=== PATIENT | female | born 1975 | race Caucasian/White ===

== ENCOUNTER 2019-04-05 16:10 | Outpatient (CLI) | payer OTHER | END 2019-04-05 16:11 | disposition home or self-care (01) | LOC: DTY/OP 16:10 | PROVIDERS: ATTEND Surgery | DX: E66.01 Morbid (severe) obesity due to excess calories (principal) | CPT/HCPCS: 97802 ==

== ENCOUNTER 2019-05-02 13:07 | Outpatient (CLI) | payer OTHER | END 2019-05-02 13:08 | disposition home or self-care (01) | LOC: DTY/OP 13:07 | PROVIDERS: ATTEND Surgery | DX: E66.01 Morbid (severe) obesity due to excess calories (principal) | CPT/HCPCS: 97802 ==

== ENCOUNTER 2019-06-05 15:51 | Outpatient (CLI) | payer OTHER | END 2019-06-05 15:52 | disposition home or self-care (01) | LOC: DTY/OP 15:51 | PROVIDERS: ATTEND Surgery | DX: E66.01 Morbid (severe) obesity due to excess calories (principal) | CPT/HCPCS: 97802 ==

== ENCOUNTER 2019-07-05 15:50 | Outpatient (CLI) | payer OTHER | END 2019-07-05 15:51 | disposition home or self-care (01) | LOC: DTY/OP 15:50 | PROVIDERS: ATTEND Surgery | DX: E66.01 Morbid (severe) obesity due to excess calories (principal) | CPT/HCPCS: 97802 ==

== ENCOUNTER 2019-08-14 15:39 | Outpatient (CLI) | payer OTHER | END 2019-08-14 15:40 | disposition home or self-care (01) | LOC: DTY/OP 15:39 | PROVIDERS: ATTEND Surgery | DX: E66.01 Morbid (severe) obesity due to excess calories (principal) | CPT/HCPCS: 97802 ==

== ENCOUNTER 2019-09-11 15:55 | Outpatient (CLI) | payer OTHER | END 2019-09-11 15:56 | disposition home or self-care (01) | LOC: DTY/OP 15:55 | PROVIDERS: ATTEND Surgery | DX: E66.01 Morbid (severe) obesity due to excess calories (principal) | CPT/HCPCS: 97802 ==

== ENCOUNTER 2020-02-08 06:40 | Outpatient (CLI) | payer OTHER ==
[2020-02-08 18:03] LABS: Hemoglobin A1c 5.3 % (4.0-6.0)
[2020-02-08 18:07] LABS: ALT (SGPT) 16 U/L (8-55); AST (SGOT) 20 U/L (5-34); Albumin 4.5 g/dL (3.5-5.0); Alkaline Phosphatase 70 U/L (40-110); Anion Gap 13 mmol/L (10-20); BUN (Urea Nitrogen) 26 mg/dL (7.0-18.7); Bilirubin, Total 0.6 mg/dL (0.2-1.2); Calc. Creatinine Clearance 0 mL/min (70-130); Calcium 9.2 mg/dL (7.8-10.44); Carbon Dioxide 25 mmol/L (22-29); Chloride 103 mmol/L (98-107); Estimated GFR-MDRD 72; Glucose 93 mg/dL (70-105); Potassium 4.2 mmol/L (3.5-5.1); Protein, Total 7.5 g/dL (6.0-8.3); Sodium 137 mmol/L (136-145)
[2020-02-09 12:25] LABS: SARS-CoV-2 MS2 Positive; SARS-CoV-2 N Gene Negative; SARS-CoV-2 S Gene Negative; SARS-CoV-2 orf1ab Negative
--- NOTE | 2020-02-11 14:24 | RAD ---
RADIOGRAPH CHEST 2 VIEWS: DATE: 02/11/2020 HISTORY: 44-year-old female for preoperative clearance FINDINGS: There is no airspace density, pulmonary edema, pleural effusion, pneumothorax, or cardiomegaly. IMPRESSION: No acute cardiopulmonary findings.
== END 2020-02-08 06:41 | disposition home or self-care (01) ==
LOC: LABBT 06:40
PROVIDERS: ATTEND Surgery
DX: Z01.818 Encounter for other preprocedural examination (principal); Z11.59 Encounter for screening for other viral diseases; E66.01 Morbid (severe) obesity due to excess calories
CPT/HCPCS: 71046; 80053; 83036; 87635; 93005; 93010; U0003

== ENCOUNTER 2020-02-08 16:00 | Inpatient (IN) | payer OTHER ==
[2020-02-07 10:39] VITALS: BMI 43.7
[2020-02-12] MEDS ORDERED: Heparin 5,000 UNITS/ML VIAL ONE (07:51)
[2020-02-12 08:09] LABS: #Eosinphils 0.3 thou/uL (0.0-0.7); #Lymphocytes 1.4 thou/uL (1.20-3.40); #Monocytes 0.4 thou/uL (0.11-0.59); #Neutrophils 4.7 thou/uL (1.40-6.50); %Basophils 0.6 % (0.0-1.0); %Eosinophils 3.7 % (0.0-10.0); %Lymphocytes 21.2 % (21.0-51.0); %Monocytes 5.8 % (0.0-10.0); %Neutrophils 68.7 % (42.0-75.0); Hemoglobin 11.5 g/dL (12.0-16.0); Mean Corpuscular HGB CONC 32.5 g/dL (32.0-36.0); Mean Corpuscular Hemoglobin 27.4 pg (27.0-31.0); Mean Corpuscular Volume 84.3 fL (78.0-98.0); Mean Platelet Volume 9.1 fL (7.4-10.4); Platelet Count 153 thou/uL (130-400); RBC Distribution Width 13.2 % (11.5-14.5); Red Blood Cell (RBC) Count 4.21 mill/uL (4.20-5.40); White Blood Cell (WBC) Count 6.8 thou/uL (4.8-10.8)
[2020-02-12 08:10] LABS: BHCG - Serum Negative (NEGATIVE); Pregs Control Background? CLEAR/WHITE (CLR/WHITE); Pregs Control Bar Appear? YES (CONTROL BAR)
[2020-02-12] MEDS ORDERED: Lidocaine 1% w/Epinephrine 1:100K 20 ML VIAL ONE (09:13)
[2020-02-12] MEDS ORDERED: Bupivacaine 0.25% HCL 30 ML VIAL ONE (09:13)
[2020-02-12] MEDS ORDERED: Midazolam HCl 2 mg/2 ml Vial ONE (09:22)
[2020-02-12] MEDS ORDERED: Fentanyl 250 MCG/5 ML VIAL ONE (09:22)
[2020-02-12] MEDS ORDERED: Fentanyl 100 MCG/2 ML VIAL ONE ×3 (11:09→12:21)
[2020-02-12] MEDS ORDERED: fentaNYL Citrate/PF 2,000 MCG in Sodium Chloride 0.9% 60 ML IV PRN ×3 (11:35→21:30)
[2020-02-12] MEDS ORDERED: Naloxone HCl 0.4 mg/ml Vial IV PRN (11:35)
[2020-02-12] MEDS ORDERED: Ondansetron PF 4 MG/2 ML Vial IVP PRN ×2 (11:35→15:56)
[2020-02-12] MEDS ORDERED: Promethazine HCl 25 MG/ML VIAL IM PRN ×2 (11:35→15:56)
[2020-02-12] MEDS ORDERED: diphenhydrAMINE 50 MG/ML VIAL IM PRN (11:35)
[2020-02-12] MEDS ORDERED: diphenhydrAMINE 25 MG CAP PO PRN (11:35)
[2020-02-12] MEDS ORDERED: diphenhydrAMINE 50 MG/ML VIAL IVP PRN ×2 (11:35→15:56)
[2020-02-12] MEDS ORDERED: Zolpidem Tartrate 5 MG TAB PO PRN (11:35)
[2020-02-12] MEDS ORDERED: Communication Order-Pharmacy FS SCH (11:45)
--- NOTE | 2020-02-12 11:59 | OP ---
DATE OF PROCEDURE: 02/12/2020 PREOPERATIVE DIAGNOSIS: Morbid obesity with the body mass index of 42. POSTOPERATIVE DIAGNOSIS: Morbid obesity with the body mass index of 42. PROCEDURE PERFORMED: Laparoscopic sleeve gastrectomy with GORE staple line reinforcement and 38-Setswana bougie. ANESTHESIA: General. ESTIMATED BLOOD LOSS: Minimal. COMPLICATIONS: None. SPECIMEN: Stomach. FINDINGS: Normal postoperative EGD. DESCRIPTION OF PROCEDURE: The patient was taken to the operating room and laid supine on the operating room table. After general anesthetic was obtained, the arms and legs were double strapped to bariatric table. The abdomen was prepped and draped in a sterile fashion. Left subcostal 5-mm Optiview trocar placed in the usual fashion. High-flow pneumoperitoneum was obtained. Left and right abdominal 12-mm ports as well as a right subcostal 5-mm port were placed under direct visualization. A 5-mm incision was made at the xiphoid and a Tristan was used to raise the liver off the GE junction. Short gastrics were taken down from midbody of the stomach to the left vivi of the diaphragm. Left vivi, posterior fundus, and angle of His were completely dissected. There was no hiatal hernia. Short gastrics were taken down to a distance of 6 cm proximal to the pylorus. Multiple loads of an [place] stapling device were used to form the sleeve. The 1st was a green load, fired up at a distance of 6 cm proximal to the pylorus, angled up towards the incisura. Multiple loads were then fired up along the bougie. Stomach was completely transected at the angle of His. Stomach was removed from the left abdominal incision. This fascia defect was closed using GraNee needle and 0 Vicryl tie. There was no bleeding on the staple line. EGD scope was passed through esophagus and stomach to the level of duodenum without obstruction. There was no stricture at the incisura. There was no air leakage through the staple line. No evidence of involvement of the GE junction with the staple line. EGD scope was used to decompress. Stomach was pulled and removed. Tristan retractor was removed under direct visualization without bleeding. All port sites were removed under direct visualization without bleeding and pneumoperitoneum was let down. The Vicryl was used to close the fascial defect from left abdominal incision. All incisions were irrigated and closed using 4-0 Monocryl and Dermabond. The patient was sent to Recovery in stable condition. All instrument counts, needle counts, and lap counts were correct. Job ID: [id number]
[2020-02-12] MEDS ORDERED: Rocuronium Bromide 10 MG/ML (10ML VIAL) ONE (14:20)
[2020-02-12] MEDS ORDERED: Ondansetron PF 4 MG/2 ML Vial ONE (14:20)
[2020-02-12] MEDS ORDERED: PHENYLEPHRINE-NS 100 MCG/ML 10 ML SYRINGE ONE (14:20)
[2020-02-12] MEDS ORDERED: Glycopyrrolate 0.2 MG/ML 5 ML SYRINGE ONE ×2 (14:20)
[2020-02-12] MEDS ORDERED: Dexamethasone 20 MG/5 ML VIAL ONE (14:20)
[2020-02-12] MEDS ORDERED: Lidocaine 1% PF 5 ML VIAL ONE (14:20)
[2020-02-12] MEDS ORDERED: PROPOFOL 200 MG/20 ML VIAL ONE (14:20)
[2020-02-12] MEDS ORDERED: Hydrocodone-Acetamin 15 ML UDCUP PO PRN ×2 (15:56→16:05)
[2020-02-12] MEDS ORDERED: Dextrose 5% in Water 1,000 ML IV PRN (15:56)
[2020-02-12] MEDS ORDERED: hydrALAZINE 20 MG/ML VIAL SLOW IVP PRN (15:56)
[2020-02-12] MEDS ORDERED: Dextrose 50% Abboject 50 ML SYRINGE SLOW IVP PRN (15:56)
[2020-02-12] MEDS ORDERED: Sodium Chloride 0.9% (PF) 10 ML VIAL FS PRN (16:05)
[2020-02-12] MEDS: D5 1/2 NS w/20 mEq KCL 1,000 ML IV SCH (19:21)
[2020-02-12] MEDS ORDERED: Enoxaparin Sodium 40 MG/0.4 ML SYRINGE SC SCH (21:00)
[2020-02-12] MEDS ORDERED: HYDROcodone/Acetaminophen 10/325 mg Tablet PO PRN ×3 (21:26→22:02)
[2020-02-13] MEDS: D5 1/2 NS w/20 mEq KCL 1,000 ML IV SCH ×3 (00:05→09:42)
[2020-02-13 05:37] LABS: #Lymphocytes 0.7 thou/uL (1.20-3.40); #Monocytes 0.5 thou/uL (0.11-0.59); #Neutrophils 8.3 thou/uL (1.40-6.50); %Basophils 0.1 % (0.0-1.0); %Eosinophils 0.3 % (0.0-10.0); %Neutrophils 87.6 % (42.0-75.0); Mean Corpuscular HGB CONC 31.7 g/dL (32.0-36.0); Mean Corpuscular Hemoglobin 27.2 pg (27.0-31.0); Mean Corpuscular Volume 85.6 fL (78.0-98.0); Mean Platelet Volume 9.3 fL (7.4-10.4); Platelet Count 176 thou/uL (130-400); RBC Distribution Width 13.2 % (11.5-14.5); Red Blood Cell (RBC) Count 4.05 mill/uL (4.20-5.40); White Blood Cell (WBC) Count 9.4 thou/uL (4.8-10.8)
[2020-02-13 05:52] LABS: Anion Gap 10 mmol/L (10-20); BUN (Urea Nitrogen) 13 mg/dL (7.0-18.7); Calc. Creatinine Clearance 156 mL/min (70-130); Calcium 8.6 mg/dL (7.8-10.44); Carbon Dioxide 28 mmol/L (22-29); Chloride 104 mmol/L (98-107); Estimated GFR-MDRD 79; Glucose 144 mg/dL (70-105); Potassium 4.6 mmol/L (3.5-5.1); Sodium 137 mmol/L (136-145)
--- NOTE | 2020-02-13 07:43 | PDOC.GSPN ---
Surgery Progress Note: Subj - Subjective Patient reports: no new complaints, feels better, pain well controlled, tolerating liquids well Narrative: Ms. Brandt is a 44 year old female POD #1 from sleeve gastrectomy. She reports that she is feeling well today and tolerating her liquid diet. Last night she reports experiencing 10/10 left upper quadrant pain when she tried to get up, but pain is well controlled now at 2/10 with norco, last given 0:04. She has been able to walk down the hallway since yesterday evening. She reports feeling some chest discomfort when she drinks, but otherwise has no complaints. Denies nausea, vomiting, shortness of breath, weakness, dizziness, throat pain or fever. Currently on D5 1/2 NS with KCl at 125 ml/hr. She has voided 4x in the toilet, no bowel moment or flatulence since surgery. Surgery Progress Note: Obj - Vital signs Vital signs: Vital Signs - Most Recent Temp Pulse Resp BP Pulse Ox 98.0 F 58 L 18 104/65 96 02/13/20 03:55 02/13/20 03:55 02/13/20 03:55 02/13/20 03:55 02/13/20 03:55 - Physical Exam General: no distress, obese Cardiovascular: regular rate and rhythm, no murmur Respiratory: clear to auscultation, normal expansion, normal respiratory effort Abdomen: soft, non tender, nondistended, positive bowel sounds (Normoactive bowel sounds). negative: guarding, rigid Wound: healing well. negative: drainage, erythma/edema Surgery Progress Note: Results - Labs Result Diagrams: 02/13/20 05:14 02/13/20 05:14 Surgery Progress Note: A/P - Problem (1) S/P laparoscopic sleeve gastrectomy Current Visit: Yes Code(s): Z98.84 - BARIATRIC SURGERY STATUS Status: Acute Assessment and Plan: Patient is a 44 year old female POD 1 sleeve gastrectomy who is recovering well and tolerating liquid diet. Can discontinue IV fluids and monitor the patient for oral intake, continue walking. If she continues to do well, discharge this afternoon. Continue home meds. Follow up in clinic.
[2020-02-13] MEDS ORDERED: Pantoprazole 40 MG VIAL IVP SCH (09:00)
[2020-02-13] MEDS ORDERED: Hydrocodone-Acetamin 15 ML UDCUP PO PRN (09:21)
[2020-02-13 12:09] VITALS: BP 107/67; TEMP 97.9
--- NOTE | 2020-02-13 23:00 | DIS ---
DATE OF ADMISSION: 02/12/2020 DATE OF DISCHARGE: 02/13/2020 ADMIT DIAGNOSIS: Morbid obesity. DISCHARGE DIAGNOSIS: Morbid obesity. PROCEDURE PERFORMED: Laparoscopic sleeve by Nancy without complication. CONDITION ON DISCHARGE: Improved. STAFF: Pierre Cruz MD HOSPITAL COURSE: On postop day 1, the patient is doing very well. She is ambulatory. She is tolerating a liquid diet without difficulty. She is discharged home. Prescriptions for Lortab, Elixir, Zofran, and Protonix were already sent to her pharmacy. She will follow up with me in 2 weeks. Job ID: [id number]
== END 2020-02-13 12:20 | disposition home or self-care (01) | DRG 621 ==
LOC: SURG A 02-12 07:08 → SURG B 02-12 13:58
PROVIDERS: ADMIT Surgery; ATTEND Surgery
PROC: 0DB64Z3 Excision of Stomach, Percutaneous Endoscopic Approach, Vertical (ICD-10-PCS; principal; 2020-02-12)
DX: E66.01 Morbid (severe) obesity due to excess calories (principal); J30.2 Other seasonal allergic rhinitis; F41.9 Anxiety disorder, unspecified; Z87.891 Personal history of nicotine dependence; Z68.41 Body mass index [BMI] 40.0-44.9, adult
CPT/HCPCS: 36415; 80048; 84703; 85025; 88307; 88312; 94760; C9113; J0690; J1100; J1644; J1650; J2250; J2405; J2704; J3010; J3480; S0020

== ENCOUNTER 2025-04-03 08:35 | Outpatient (CLI) | payer BC, OTHER | END 2025-04-03 08:36 | disposition home or self-care (01) | LOC: MRI 08:35 | PROVIDERS: ATTEND Orthopaedic Surgery | DX: M54.12 Radiculopathy, cervical region (principal); M48.02 Spinal stenosis, cervical region | CPT/HCPCS: 72141 ==

== ENCOUNTER 2025-06-12 08:14 | Outpatient (CLI) | payer BC, OTHER | END 2025-06-12 08:15 | disposition home or self-care (01) | LOC: BICRAD 08:14 | PROVIDERS: ATTEND Orthopaedic Surgery | DX: M54.2 Cervicalgia (principal); M47.812 Spondylosis without myelopathy or radiculopathy, cervical region; Z96.698 Presence of other orthopedic joint implants | CPT/HCPCS: 72040 ==